=== PATIENT | female | born 1990 ===

== ENCOUNTER 2017-08-23 13:34 | Emergency (ER) | payer OTHER ==
[~2017-08-23] VITALS: Ht 165.1 cm; Wt 93.0 kg
[2017-08-23] MEDS ORDERED: PRENATA CHEWAB1 EACH (13:59)
== END 2017-08-23 20:41 | disposition home or self-care (01) ==
LOC: ER 13:34
DX: O98.512 Other viral diseases complicating pregnancy, second trimester (principal); B34.9 Viral infection, unspecified; Z34.82 Encounter for supervision of other normal pregnancy, second trimester

== ENCOUNTER 2017-11-16 13:45 | Inpatient (IN) | payer OTHER ==
[~2017-11-16] VITALS: Ht 165.1 cm; Wt 96.2 kg
[~2017-11-16 13:45] MED LIST: PRENATA CHEWAB1 EACH
[2017-11-23] MEDS ORDERED: KEFLEX500 MG PO ×2 (13:38→13:44)
== END 2017-12-07 11:18 | DRG 775 ==
LOC: LDR 12-05 06:21 → OB/GYN 12-05 18:10
PROC: 10E0XZZ Delivery of Products of Conception, External Approach (ICD-10-PCS; principal; 2017-12-05)
PROC: 10907ZC Drainage of Amniotic Fluid, Therapeutic from Products of Conception, Via Natural or Artificial Opening (ICD-10-PCS; 2017-12-05)
PROC: 3E0P7VZ Introduction of Hormone into Female Reproductive, Via Natural or Artificial Opening (ICD-10-PCS; 2017-12-05)
PROC: 3E033VJ Introduction of Other Hormone into Peripheral Vein, Percutaneous Approach (ICD-10-PCS; 2017-12-05)
PROC: 4A033R1 Measurement of Arterial Saturation, Peripheral, Percutaneous Approach (ICD-10-PCS; 2017-12-05)
PROC: 4A1HXCZ Monitoring of Products of Conception, Cardiac Rate, External Approach (ICD-10-PCS; 2017-12-05)
DX: O80 Encounter for full-term uncomplicated delivery (principal); Z3A.39 39 weeks gestation of pregnancy; Z37.0 Single live birth

== ENCOUNTER 2017-11-22 21:27 | Outpatient (CLI) | payer OTHER ==
[2017-11-23] MEDS ORDERED: KEFLEX500 MG PO ×2 (13:38→13:44)
== END 2017-11-23 15:30 | disposition home or self-care (01) ==
LOC: OBS/DEL 21:27
DX: O23.43 Unspecified infection of urinary tract in pregnancy, third trimester (principal); Z34.83 Encounter for supervision of other normal pregnancy, third trimester

== ENCOUNTER 2018-01-16 06:28 | Day surgery (SDC) | payer OTHER ==
[~2018-01-16 06:28] MED LIST changes: +KEFLEX500 MG PO
[2018-01-16] MEDS ORDERED: PERCOCET 5-3251 EACH PO (15:53)
== END 2018-01-16 19:50 | disposition home or self-care (01) ==
LOC: CIR.AMB 06:28
DX: Z30.2 Encounter for sterilization (principal)